=== PATIENT | female | born 1990 ===

== ENCOUNTER 2023-03-06 12:06 | Emergency (ER) | payer BC ==
[2023-03-06 12:23] LABS: BILIRUBIN,URINE NEGATIVE (NEGATIVE); COLOR,URINE YELLOW; GLUCOSE,URINE NEGATIVE (NEGATIVE); KETONES,URINE TRACE mg/dL (NEGATIVE); LEUKOCYTE ESTERASE,URINE MODERATE (NEGATIVE); NITRITE,URINE NEGATIVE (NEGATIVE); OCCULT BLOOD,URINE NEGATIVE (NEGATIVE); PROTEIN,URINE NEGATIVE (NEGATIVE); UROBILINOGEN,URINE 0.2 EU/dL (<2.0)
[2023-03-06 12:24] LABS: APPEARANCE,URINE HAZY
[2023-03-06 12:29] LABS: BACTERIA,URINE FEW (NEGATIVE); EPITHELIAL CELLS,URINE FEW (NONE-FEW); RBC,URINE 0-2 (0-2/HPF)
[2023-03-06] MEDS ORDERED: Ondansetron 4 MG Tab.DIS PO ONE (12:35)
== END 2023-03-06 13:02 | disposition home or self-care (01) ==
LOC: MW.ED 12:06
DX: O23.41 Unspecified infection of urinary tract in pregnancy, first trimester (principal); Z3A.01 Less than 8 weeks gestation of pregnancy
CPT/HCPCS: 81001; 81025; 87086; 99283

== ENCOUNTER 2023-06-04 10:08 | Emergency (ER) | payer BC, MEDICAID ==
[2023-06-04] MEDS ORDERED: Sodium Chloride 0.9% 1,000 ML IV STA ×2 (11:07→11:55)
[2023-06-04 11:34] LABS: BASOPHILS ABSOLUTE AUTO 0.03 K/uL (0.00-0.20); BASOPHILS PERCENT AUTO 0.3 % (0.0-1.0); EOSINOPHILS ABSOLUTE AUTO 0.11 K/uL (0.00-0.45); HEMATOCRIT 40.3 % (37.0-47.0); HEMOGLOBIN 13.4 g/dL (12.0-16.0); IMMATURE GRAN ABSOLUTE AUTO 0.13 K/uL (0.00-0.05); IMMATURE GRAN PERCENT AUTO 1.2 % (0.0-0.4); LYMPHOCYTES ABSOLUTE AUTO 1.44 K/uL (1.00-4.80); LYMPHOCYTES PERCENT AUTO 13.5 % (24.0-44.0); MEAN CORPUSCULAR HEMOGLOBIN 25.1 pg (28.0-32.0); MEAN CORPUSCULAR HGB CONC 33.3 g/dL (32.0-36.0); MEAN CORPUSCULAR VOLUME 75.5 fL (83.0-99.0); MEAN PLATELET VOLUME 8.9 fL (9.4-12.3); MONOCYTES ABSOLUTE AUTO 0.62 K/uL (0.00-0.80); MONOCYTES PERCENT AUTO 5.8 % (0.0-8.0); NEUTROPHILS ABSOLUTE AUTO 8.36 K/uL (1.80-7.70); NEUTROPHILS PERCENT AUTO 78.2 % (41.0-71.0); PLATELET COUNT,PLT 417 K/uL (150-400); RED BLOOD CELL COUNT 5.34 M/uL (4.10-5.30); WHITE BLOOD CELL COUNT,WBC 10.69 K/uL (3.9-11.3)
[2023-06-04 11:52] LABS: CORONAVIRUS COVID-19 NAA NEGATIVE (NEGATIVE); INFLUENZA A NAA NEGATIVE (NEGATIVE); INFLUENZA B NAA NEGATIVE (NEGATIVE); RESPIRATORY SYNCYTIAL VIR NAA NEGATIVE (NEGATIVE)
[2023-06-04 12:05] LABS: A/G RATIO 0.7 (0.9-1.6); BILIRUBIN TOTAL 0.2 mg/dL (0.2-1.0); CALCIUM 9.3 mg/dL (8.5-10.1); CARBON DIOXIDE,CO2 24.5 mmol/L (21.0-32.0); CREATININE 0.7 mg/dL (0.6-1.0); EST CRCL DRUG DOSING (CG) 116.39 mL/min; MAGNESIUM 1.6 mg/dL (1.8-2.4); POTASSIUM,K 3.2 mmol/L (3.5-5.1); PROTEIN TOTAL,TP 7.5 g/dL (6.4-8.2)
[2023-06-04] MEDS ORDERED: Potassium Chloride 20 MEQ Tab.ER PO STA (12:13)
[2023-06-04] MEDS ORDERED: Magnesium Sulfate/Water 2 GM in Premix Bag 1 BAG IV STA (12:13)
[2023-06-04 12:17] LABS: APPEARANCE,URINE SLT CLOUDY; BILIRUBIN,URINE MODERATE (NEGATIVE); COLOR,URINE YELLOW; GLUCOSE,URINE NEGATIVE (NEGATIVE); KETONES,URINE TRACE mg/dL (NEGATIVE); LEUKOCYTE ESTERASE,URINE SMALL (NEGATIVE); NITRITE,URINE POSITIVE (NEGATIVE); OCCULT BLOOD,URINE NEGATIVE (NEGATIVE); PROTEIN,URINE TRACE mg/dL (NEGATIVE); UROBILINOGEN,URINE 0.2 EU/dL (<2.0)
[2023-06-04 12:26] LABS: BACTERIA,URINE 2+ (NEGATIVE); EPITHELIAL CELLS,URINE MANY (NONE-FEW); MUCUS,URINE HEAVY (NONE-MOD)
[2023-06-04] MEDS ORDERED: cefTRIAXone 2 GM in Sodium Chloride 0.9% 50 ML IV STA (12:29)
== END 2023-06-04 13:42 | disposition home or self-care (01) ==
LOC: MW.ED 10:08
DX: O99.282 Endocrine, nutritional and metabolic diseases complicating pregnancy, second trimester (principal); E83.42 Hypomagnesemia; E87.6 Hypokalemia; E03.9 Hypothyroidism, unspecified; O99.891 Other specified diseases and conditions complicating pregnancy; R82.71 Bacteriuria; R19.7 Diarrhea, unspecified; Z88.0 Allergy status to penicillin; Z79.899 Other long term (current) drug therapy; Z20.822 Contact with and (suspected) exposure to COVID-19; Z3A.19 19 weeks gestation of pregnancy
CPT/HCPCS: 0241U; 36415; 80053; 81001; 83690; 83735; 85025; 87045; 87046; 87086; 87324; 87338; 87449; 87899; 96361; 96365; 96367; 99284; A9270; J0696; J3475; J3490; J7030; 99283

== ENCOUNTER 2023-10-13 16:17 | Emergency (ER) | payer BC, MEDICAID ==
[2023-10-13 17:46] LABS: BILIRUBIN,URINE NEGATIVE (NEGATIVE); COLOR,URINE YELLOW; GLUCOSE,URINE NEGATIVE (NEGATIVE); KETONES,URINE NEGATIVE (NEGATIVE); LEUKOCYTE ESTERASE,URINE TRACE (NEGATIVE); NITRITE,URINE POSITIVE (NEGATIVE); OCCULT BLOOD,URINE TRACE-INTACT (NEGATIVE); PH,URINE 6.5 (5.0-8.0); PROTEIN,URINE NEGATIVE (NEGATIVE)
[2023-10-13 18:19] LABS: APPEARANCE,URINE HAZY
[2023-10-13 18:20] LABS: BACTERIA,URINE RARE (NEGATIVE); EPITHELIAL CELLS,URINE RARE (NONE-FEW); RBC,URINE 0-1 (0-2/HPF); WBC,URINE 0-1 (0-5/HPF)
== END 2023-10-13 19:09 | disposition home or self-care (01) ==
LOC: MW.ED 16:17
DX: N39.0 Urinary tract infection, site not specified (principal); R33.9 Retention of urine, unspecified; Z75.8 Other problems related to medical facilities and other health care
CPT/HCPCS: 51798; 81001; 99283; 99283-25